=== PATIENT | male | born 1960 | race African-American/Black ===

== ENCOUNTER 2016-04-10 07:33 | Emergency (ER) | payer OTHER ==
[~2016-04-10] VITALS: Ht 177.8 cm; Wt 85.5 kg
[~2016-04-10 07:33] MED LIST: MIRALAX17 GM PO
[2016-04-10 08:33] LABS: EOSINOPHIL (%) 0.4 % (0-5); HEMATOCRIT 40.6 % (38.0-50.0); IMMATURE GRANULOCYTE (%) 0.2 % (0.0-0.7); IMMATURE GRANULOCYTE COUNT 0.1 K/uL; LYMPHOCYTE COUNT 1.1 K/uL (1.0-2.8); MCH 29.4 PG (29.0-34.0); MCHC 34.2 G/DL (30.0-36.0); MEAN PLAT.VOLUME 9.5 uM^3 (9.0-12.4); MONOCYTE (%) 12.1 % (3-12); MONOCYTE COUNT 0.6 K/uL (0-0.8); NEUTROPHIL (%) 63.7 % (45-76); NEUTROPHIL COUNT 2.9 K/uL (1.8-6.4); PLATELET COUNT 228 K/uL (156-360); RBC DIS.WIDTH-CV 13.2 % (11.8-14.6); RBC DIS.WIDTH-SD 41.1 % (39-53); RED BLOOD COUNT 4.72 M/uL (4.00-5.50); WHITE BLOOD COUNT 4.6 K/uL (4.1-10.2)
[2016-04-10 08:53] LABS: CHLORIDE 106 mEq/L (99-109); POTASSIUM 4.1 mEq/L (3.7-5.4); SODIUM 137 mEq/L (136-147)
[2016-04-10 08:55] LABS: GLUCOSE 91 mg/dL (70-99)
[2016-04-10 08:56] LABS: ANION GAP 13 MEQ/L (2-14)
[2016-04-10 08:58] LABS: GFR ESTIMATE (CALCULATED) > 59 mL/min/
[2016-04-10 08:59] LABS: UREA NITROGEN (BUN) 18 mg/dL (9-23)
[2016-04-10 11:57] LABS: ADD MIUA? YES; BILIRUBIN SMALL; BLOOD NEGATIVE; COLOR DK YELLOW ((YELLOW)); GLUCOSE (STRIP) NEGATIVE; KETONES 40; LEUKOCYTES TRACE; NITRITE NEGATIVE; PROTEIN (STRIP) 30; SPECIFIC GRAVITY 1.027 (1.000-1.030)
[2016-04-10 12:10] LABS: BACTERIA NONE SEEN; CASTS NONE SEEN /LPF; CRYSTALS NONE SEEN; EPITHELIAL CELLS RARE; MUCUS NONE SEEN; PATHOLOGICAL CAST NONE SEEN; RED BLOOD CELLS 0-5 /HPF (0-5); SMALL ROUND CELL NONE SEEN; WHITE BLOOD CELLS 0-5 /HPF (0-5); YEAST-LIKE CELL NONE SEEN
[2016-04-10] MEDS ORDERED: LEVAQUIN750 MG PO (12:16)
[2016-04-10] MEDS ORDERED: FLOMAX0.4 MG PO (12:16)
[2016-04-10] MEDS ORDERED: MIRALAX17 GM PO (12:18)
[2016-04-10] MEDS ORDERED: LISINOPRIL-HCT1 EAC3 PO ×2 (12:30→12:33)
[2016-04-10 12:33] VITALS: BP 172/106
== END 2016-04-10 12:40 | disposition home or self-care (01) ==
LOC: EME 07:33
PROVIDERS: Physician Assistant Medical
PROC: 0T9B70Z Drainage of Bladder with Drainage Device, Via Natural or Artificial Opening (ICD-10-PCS; principal; 2016-04-10)
DX: R33.9 Retention of urine, unspecified (principal); J18.9 Pneumonia, unspecified organism; K59.00 Constipation, unspecified; F11.10 Opioid abuse, uncomplicated; F17.200 Nicotine dependence, unspecified, uncomplicated
CPT/HCPCS: 74022; 80048; 81003; 85025; 99281; 99285

== ENCOUNTER 2016-04-22 09:51 | Emergency (ER) | payer OTHER ==
[~2016-04-22] VITALS: Ht 177.8 cm; Wt 88.5 kg
[~2016-04-22 09:51] MED LIST changes: +FLOMAX0.4 MG PO; +LEVAQUIN750 MG PO; +LISINOPRIL-HCT1 EAC3 PO
[2016-04-22 10:44] LABS: HEMATOCRIT 39.8 % (38.0-50.0); MCH 28.8 PG (29.0-34.0); MCHC 32.7 G/DL (30.0-36.0); MCV 88.1 FL (86-99); RBC DIS.WIDTH-CV 13.3 % (11.8-14.6); RBC DIS.WIDTH-SD 41.9 % (39-53); RED BLOOD COUNT 4.52 M/uL (4.00-5.50); WHITE BLOOD COUNT 3.5 K/uL (4.1-10.2)
[2016-04-22 10:55] LABS: PLATELET COUNT 396 K/uL (156-360)
[2016-04-22 10:57] LABS: CHLORIDE 105 mEq/L (99-109); POTASSIUM 4.2 mEq/L (3.7-5.4); SODIUM 138 mEq/L (136-147)
[2016-04-22 10:59] LABS: GLUCOSE 139 mg/dL (70-99)
[2016-04-22 11:00] LABS: ANION GAP 10 MEQ/L (2-14)
[2016-04-22 11:01] LABS: TOTAL BILIRUBIN 0.4 mg/dL (0.0-1.0)
[2016-04-22 11:02] LABS: SERUM ETHYL ALCOHOL < 10 mg/dL
[2016-04-22 11:03] LABS: ALKALINE PHOSPHATASE 56 IU/L (3-129); GFR ESTIMATE (CALCULATED) > 59 mL/min/
[2016-04-22 11:04] LABS: UREA NITROGEN (BUN) 12 mg/dL (9-23)
[2016-04-22 11:56] LABS: ADD MIUA? NO; BILIRUBIN NEGATIVE; BLOOD NEGATIVE; COLOR YELLOW ((YELLOW)); GLUCOSE (STRIP) NEGATIVE; KETONES NEGATIVE; LEUKOCYTES NEGATIVE; NITRITE NEGATIVE; PROTEIN (STRIP) TRACE; SPECIFIC GRAVITY 1.015 (1.000-1.030); UROBILINOGEN 0.2 MG/DL (0.2-1.0)
[2016-04-22 12:05] LABS: ADD MEDTOX COMMENT Y; AMPHETAMINE NEGATIVE (500 ng/mL); BARBITURATES NEGATIVE (200 ng/mL); BENZODIAZEPINES NEGATIVE (150 ng/mL); COCAINE PRESUMPTIVE POSITIVE (150 ng/mL); INTERNAL CONTROLS VALID? YES; METHADONE NEGATIVE (200 ng/mL); METHAMPHETAMINE NEGATIVE (500 ng/mL); OPIATES (MORPHINE) PRESUMPTIVE POSITIVE (100 ng/mL); OXYCODONE NEGATIVE (100 ng/mL); PHENCYCLIDINE NEGATIVE (25 ng/mL); PROPOXYPHENE NEGATIVE (300 ng/mL); THC CANNABINOIDS NEGATIVE (50 ng/mL); TRICYCLIC ANTIDEPRESSANTS NEGATIVE (300 ng/mL)
[2016-04-22 12:27] VITALS: BP 143/88
== END 2016-04-22 13:48 | disposition home or self-care (01) ==
LOC: EME → EDBD 09:51 → EME 09:51
PROVIDERS: Emergency Medicine
DX: F11.10 Opioid abuse, uncomplicated (principal); T40.2X1A Poisoning by other opioids, accidental (unintentional), initial encounter; I10 Essential (primary) hypertension; F17.200 Nicotine dependence, unspecified, uncomplicated
CPT/HCPCS: 73030; 80053; 81003; 84999; 85027; 93005; 99281; 99284; G0480; J2310; J7030

== ENCOUNTER 2017-07-17 08:13 | Inpatient (IN) | payer OTHER ==
[~2017-07-17] VITALS: Ht 177.8 cm; Wt 80.0 kg
[2017-07-17 08:53] LABS: BASOPHIL (%) 0.3 % (0-1); EOSINOPHIL (%) 0.4 % (0-5); HEMATOCRIT 43.9 % (38.0-50.0); HEMOGLOBIN 15.6 G/DL (12.5-16.6); IMMATURE GRANULOCYTE (%) 0.3 % (0.0-0.7); LYMPHOCYTE (%) 35.2 % (15-42); LYMPHOCYTE COUNT 2.4 K/uL (1.0-2.8); MCH 28.8 PG (29.0-34.0); MCHC 35.5 G/DL (30.0-36.0); MCV 81.1 FL (86-99); MONOCYTE (%) 9.6 % (3-12); MONOCYTE COUNT 0.7 K/uL (0-0.8); NEUTROPHIL (%) 54.2 % (45-76); NEUTROPHIL COUNT 3.7 K/uL (1.8-6.4); PLATELET COUNT 367 K/uL (156-360); RBC DIS.WIDTH-CV 12.4 % (11.8-14.6); RBC DIS.WIDTH-SD 36.4 % (39-53); RED BLOOD COUNT 5.41 M/uL (4.00-5.50); WHITE BLOOD COUNT 6.8 K/uL (4.1-10.2)
[2017-07-17 08:59] LABS: CHLORIDE 91 mEq/L (99-109); POTASSIUM 3.9 mEq/L (3.7-5.4); SODIUM 128 mEq/L (136-147)
[2017-07-17 09:01] LABS: GLUCOSE 112 mg/dL (70-99)
[2017-07-17 09:05] LABS: CREATININE 1.1 mg/dL (0.6-1.3); GFR ESTIMATE (CALCULATED) > 59 mL/min/ (58.99-99999)
[2017-07-17 09:06] LABS: UREA NITROGEN (BUN) 17 mg/dL (9-23)
[2017-07-17] MEDS ORDERED: ZESTRIL10 MG PO (10:11)
[2017-07-17 12:39] LABS: HEPATITIS B SURFACE ANTIGEN Nonreactive
[2017-07-17 12:40] LABS: ANTI-HEPATITIS A VIRUS (IGM) Nonreactive
[2017-07-17 12:41] LABS: ANTI-HEPATITIS B CORE (IGM) Nonreactive; HIV-1/2 AB/AG COMBO Nonreactive
[2017-07-17 12:44] LABS: HEPATITIS C ANTIBODY REACTIVE
[2017-07-17 15:50] VITALS: BP 173/107
[2017-07-17 17:06] VITALS: BP 168/105
[2017-07-17 17:54] VITALS: BP 181/108
[2017-07-17 20:00] VITALS: BP 161/95
[2017-07-18] VITALS (8 sets, daily range): BP systolic 127–177; BP diastolic 81–107
[2017-07-18 05:39] LABS: HEMATOCRIT 41.8 % (38.0-50.0); HEMOGLOBIN 14.1 G/DL (12.5-16.6); MCH 28.1 PG (29.0-34.0); MCHC 33.7 G/DL (30.0-36.0); MCV 83.3 FL (86-99); PLATELET COUNT 330 K/uL (156-360); RBC DIS.WIDTH-CV 12.7 % (11.8-14.6); RBC DIS.WIDTH-SD 38.5 % (39-53); RED BLOOD COUNT 5.02 M/uL (4.00-5.50); WHITE BLOOD COUNT 5.4 K/uL (4.1-10.2)
[2017-07-18 06:00] LABS: CHLORIDE 96 MEQ/L (99-109); CREATININE 1.3 MG/DL (0.6-1.3); GFR ESTIMATE (CALCULATED) > 59 mL/min/ (58.99-99999); GLUCOSE 102 mg/dL (70-99); POTASSIUM 4.6 MEQ/L (3.7-5.4); SODIUM 131 MEQ/L (136-147); UREA NITROGEN (BUN) 14 mg/dL (9-23)
[2017-07-18 09:28] LABS: ALBUMIN 3.4 G/DL (3.2-4.8); ALKALINE PHOSPHATASE 42 IU/L (3-129); ALT (GPT) 24 IU/L (3-49); AST (GOT) 27 IU/L (2-34); DIRECT BILIRUBIN 0.4 mg/dL (0.0-0.3); TOTAL BILIRUBIN 1.2 MG/DL (0.0-1.0); TOTAL PROTEIN 7.3 G/DL (6.4-8.3)
[2017-07-18 09:44] LABS: INTER. NORMALIZED RATIO 1.1
[2017-07-18 16:03] LABS: CHLORIDE 101 MEQ/L (99-109); CREATININE 0.9 MG/DL (0.6-1.3); GFR ESTIMATE (CALCULATED) > 59 mL/min/ (58.99-99999); GLUCOSE 102 mg/dL (70-99); POTASSIUM 4.1 MEQ/L (3.7-5.4); SODIUM 132 MEQ/L (136-147); UREA NITROGEN (BUN) 14 mg/dL (9-23)
[2017-07-19 03:52] VITALS: BP 164/85
[2017-07-19 06:17] LABS: BASOPHIL (%) 0.5 % (0-1); EOSINOPHIL (%) 1.4 % (0-5); EOSINOPHIL COUNT 0.1 K/uL (0-0.3); HEMATOCRIT 34.1 % (38.0-50.0); IMMATURE GRANULOCYTE (%) 0.2 % (0.0-0.7); LYMPHOCYTE (%) 41.7 % (15-42); LYMPHOCYTE COUNT 2.4 K/uL (1.0-2.8); MCHC 34.3 G/DL (30.0-36.0); MCV 84.4 FL (86-99); MONOCYTE (%) 10.8 % (3-12); MONOCYTE COUNT 0.6 K/uL (0-0.8); NEUTROPHIL (%) 45.4 % (45-76); NEUTROPHIL COUNT 2.6 K/uL (1.8-6.4); PLATELET COUNT 294 K/uL (156-360); RBC DIS.WIDTH-CV 12.8 % (11.8-14.6); RED BLOOD COUNT 4.04 M/uL (4.00-5.50); WHITE BLOOD COUNT 5.7 K/uL (4.1-10.2)
[2017-07-19 06:18] LABS: HEMOGLOBIN 11.7 G/DL (12.5-16.6)
[2017-07-19 07:13] LABS: ALKALINE PHOSPHATASE 34 IU/L (3-129); ALT (GPT) 29 IU/L (3-49); AST (GOT) 31 IU/L (2-34); CHLORIDE 106 MEQ/L (99-109); CREATININE 0.9 MG/DL (0.6-1.3); GFR ESTIMATE (CALCULATED) > 59 mL/min/ (58.99-99999); GLUCOSE 98 mg/dL (70-99); POTASSIUM 4.4 MEQ/L (3.7-5.4); SODIUM 136 MEQ/L (136-147)
[2017-07-19 07:15] VITALS: BP 160/94
[2017-07-19 07:20] LABS: TOTAL BILIRUBIN 0.7 MG/DL (0.0-1.0); TOTAL PROTEIN 6.1 G/DL (6.4-8.3); UREA NITROGEN (BUN) 29 mg/dL (9-23)
[2017-07-19 10:47] VITALS: BP 131/83
[2017-07-19 13:26] LABS: HEMATOCRIT 33.7 % (38.0-50.0); HEMOGLOBIN 11.4 G/DL (12.5-16.6); MCH 28.8 PG (29.0-34.0); MCHC 33.8 G/DL (30.0-36.0); MCV 85.1 FL (86-99); PLATELET COUNT 323 K/uL (156-360); RBC DIS.WIDTH-CV 12.8 % (11.8-14.6); RBC DIS.WIDTH-SD 39.4 % (39-53); RED BLOOD COUNT 3.96 M/uL (4.00-5.50); WHITE BLOOD COUNT 7.6 K/uL (4.1-10.2)
[2017-07-19 15:16] VITALS: BP 150/77
[2017-07-19 19:13] LABS: HEMATOCRIT 30.9 % (38.0-50.0); HEMOGLOBIN 10.5 G/DL (12.5-16.6); MCV 84.2 FL (86-99)
[2017-07-19 19:40] VITALS: BP 116/67
[2017-07-20] VITALS (8 sets, daily range): BP systolic 130–158; BP diastolic 71–80
[2017-07-20 00:39] LABS: HEMATOCRIT 29.7 % (38.0-50.0); HEMOGLOBIN 10.4 G/DL (12.5-16.6); MCV 83.2 FL (86-99)
[2017-07-20 05:52] LABS: INTER. NORMALIZED RATIO 1.1
[2017-07-20 05:55] LABS: BASOPHIL (%) 0.5 % (0-1); EOSINOPHIL (%) 0.5 % (0-5); HEMATOCRIT 29.1 % (38.0-50.0); HEMOGLOBIN 9.9 G/DL (12.5-16.6); IMMATURE GRANULOCYTE (%) 0.1 % (0.0-0.7); LYMPHOCYTE (%) 41.2 % (15-42); LYMPHOCYTE COUNT 3.1 K/uL (1.0-2.8); MCH 28.5 PG (29.0-34.0); MCV 83.9 FL (86-99); MONOCYTE (%) 9.4 % (3-12); MONOCYTE COUNT 0.7 K/uL (0-0.8); NEUTROPHIL (%) 48.3 % (45-76); NEUTROPHIL COUNT 3.6 K/uL (1.8-6.4); PLATELET COUNT 325 K/uL (156-360); RBC DIS.WIDTH-CV 12.9 % (11.8-14.6); RBC DIS.WIDTH-SD 38.6 % (39-53); RED BLOOD COUNT 3.47 M/uL (4.00-5.50); WHITE BLOOD COUNT 7.5 K/uL (4.1-10.2)
[2017-07-20 06:21] LABS: ALBUMIN 3.1 G/DL (3.2-4.8); CHLORIDE 108 MEQ/L (99-109); CREATININE 1.3 MG/DL (0.6-1.3); GFR ESTIMATE (CALCULATED) > 59 mL/min/ (58.99-99999); GLUCOSE 96 mg/dL (70-99); PHOSPHORUS 3.3 mg/dL (2.5-4.9); POTASSIUM 4.7 MEQ/L (3.7-5.4); SODIUM 137 MEQ/L (136-147); UREA NITROGEN (BUN) 37 mg/dL (9-23)
[2017-07-20 07:14] LABS: BENZODIAZEPINES, URINE SCREEN POSITIVE (200 ng/mL)
[2017-07-20 12:06] LABS: HEMATOCRIT 26.9 % (38.0-50.0); HEMOGLOBIN 9.3 G/DL (12.5-16.6); MCV 84.9 FL (86-99)
[2017-07-20 19:04] LABS: HEMATOCRIT 25.5 % (38.0-50.0); HEMOGLOBIN 8.8 G/DL (12.5-16.6); MCV 84.2 FL (86-99)
[2017-07-21] VITALS (9 sets, daily range): BP systolic 126–145; BP diastolic 69–84
[2017-07-21 05:16] LABS: BENZODIAZEPINES, URINE SCREEN Negative (200 ng/mL)
[2017-07-21 05:58] LABS: HEMATOCRIT 26.6 % (38.0-50.0); HEMOGLOBIN 9.4 G/DL (12.5-16.6); MCV 82.9 FL (86-99)
[2017-07-21 06:27] LABS: CHLORIDE 107 MEQ/L (99-109); CREATININE 1.1 MG/DL (0.6-1.3); GFR ESTIMATE (CALCULATED) > 59 mL/min/ (58.99-99999); GLUCOSE 90 mg/dL (70-99); POTASSIUM 4.2 MEQ/L (3.7-5.4); SODIUM 134 MEQ/L (136-147); UREA NITROGEN (BUN) 21 mg/dL (9-23)
[2017-07-21 11:56] LABS: HEMATOCRIT 26.2 % (38.0-50.0); HEMOGLOBIN 9.2 G/DL (12.5-16.6); MCV 83.7 FL (86-99)
[2017-07-21 18:11] LABS: HEMATOCRIT 26.7 % (38.0-50.0); MCV 83.2 FL (86-99)
[2017-07-22] VITALS (8 sets, daily range): BP systolic 124–150; BP diastolic 71–87
[2017-07-22 05:39] LABS: BASOPHIL (%) 0.8 % (0-1); EOSINOPHIL COUNT 0.2 K/uL (0-0.3); HEMATOCRIT 24.9 % (38.0-50.0); HEMOGLOBIN 8.6 G/DL (12.5-16.6); IMMATURE GRANULOCYTE (%) 0.2 % (0.0-0.7); LYMPHOCYTE COUNT 2.6 K/uL (1.0-2.8); MCH 28.7 PG (29.0-34.0); MCHC 34.5 G/DL (30.0-36.0); MONOCYTE (%) 6.4 % (3-12); MONOCYTE COUNT 0.3 K/uL (0-0.8); NEUTROPHIL (%) 39.6 % (45-76); NEUTROPHIL COUNT 2.1 K/uL (1.8-6.4); PLATELET COUNT 276 K/uL (156-360); RBC DIS.WIDTH-CV 12.8 % (11.8-14.6); RBC DIS.WIDTH-SD 38.7 % (39-53); WHITE BLOOD COUNT 5.3 K/uL (4.1-10.2)
[2017-07-22 06:09] LABS: CHLORIDE 109 MEQ/L (99-109); GFR ESTIMATE (CALCULATED) > 59 mL/min/ (58.99-99999); GLUCOSE 93 mg/dL (70-99); PHOSPHORUS 3.5 mg/dL (2.5-4.9); POTASSIUM 4.1 MEQ/L (3.7-5.4); SODIUM 139 MEQ/L (136-147); UREA NITROGEN (BUN) 10 mg/dL (9-23)
[2017-07-22 09:11] LABS: BENZODIAZEPINES, URINE SCREEN Negative (200 ng/mL)
[2017-07-22 18:24] LABS: HEMATOCRIT 27.8 % (38.0-50.0); HEMOGLOBIN 9.6 G/DL (12.5-16.6); MCV 84.2 FL (86-99)
[2017-07-22 23:09] LABS: HEMATOCRIT 26.1 % (38.0-50.0); HEMOGLOBIN 9.3 G/DL (12.5-16.6); MCV 83.7 FL (86-99)
[2017-07-23] VITALS (7 sets, daily range): BP systolic 131–162; BP diastolic 58–93
[2017-07-23 05:51] LABS: HEMATOCRIT 27.1 % (38.0-50.0); HEMOGLOBIN 9.2 G/DL (12.5-16.6); MCH 28.5 PG (29.0-34.0); MCHC 33.9 G/DL (30.0-36.0); MCV 83.9 FL (86-99); PLATELET COUNT 261 K/uL (156-360); RBC DIS.WIDTH-CV 12.8 % (11.8-14.6); RBC DIS.WIDTH-SD 38.9 % (39-53); RED BLOOD COUNT 3.23 M/uL (4.00-5.50); WHITE BLOOD COUNT 4.9 K/uL (4.1-10.2)
[2017-07-23 05:54] LABS: BENZODIAZEPINES, URINE SCREEN Negative (200 ng/mL)
[2017-07-23 06:19] LABS: ALBUMIN 2.9 G/DL (3.2-4.8); CHLORIDE 107 MEQ/L (99-109); CREATININE 1.1 MG/DL (0.6-1.3); GFR ESTIMATE (CALCULATED) > 59 mL/min/ (58.99-99999); GLUCOSE 135 mg/dL (70-99); PHOSPHORUS 3.1 mg/dL (2.5-4.9); POTASSIUM 3.7 MEQ/L (3.7-5.4); SODIUM 138 MEQ/L (136-147); UREA NITROGEN (BUN) 7 mg/dL (9-23)
[2017-07-24 03:35] VITALS: BP 154/73
[2017-07-24 06:03] LABS: BASOPHIL (%) 0.7 % (0-1); EOSINOPHIL (%) 3.5 % (0-5); EOSINOPHIL COUNT 0.2 K/uL (0-0.3); HEMOGLOBIN 9.5 G/DL (12.5-16.6); IMMATURE GRANULOCYTE (%) 0.2 % (0.0-0.7); LYMPHOCYTE COUNT 2.2 K/uL (1.0-2.8); MCH 28.7 PG (29.0-34.0); MCHC 33.9 G/DL (30.0-36.0); MCV 84.6 FL (86-99); MONOCYTE (%) 7.2 % (3-12); MONOCYTE COUNT 0.4 K/uL (0-0.8); NEUTROPHIL (%) 51.4 % (45-76); NEUTROPHIL COUNT 3.1 K/uL (1.8-6.4); PLATELET COUNT 279 K/uL (156-360); RBC DIS.WIDTH-CV 12.9 % (11.8-14.6); RBC DIS.WIDTH-SD 39.4 % (39-53); RED BLOOD COUNT 3.31 M/uL (4.00-5.50)
[2017-07-24 07:17] VITALS: BP 160/87
[2017-07-24] MEDS ORDERED: NICOTINE PATCH1 EAC2 TD (11:13)
[2017-07-24] MEDS ORDERED: OMEPRAZOLE20 MG PO (11:14)
[2017-07-24] MEDS ORDERED: ZESTRIL10 MG PO (11:15)
== END 2017-07-24 15:19 | disposition home or self-care (01) | DRG 327 ==
LOC: EME 08:13 → EDOF 09:56 → 4EAST 09:56 → EDOF 09:56 → 5WEST 09:56 → ENRESERV 10:03 → EDOF 15:44 → ENRESERV 16:56 → 5WEST 17:32 → ENRESERV 07-19 18:03 → 4EAST 07-19 19:30 → ENPENDDIS 07-24 → 4EAST 07-24 15:19
PROVIDERS: Emergency Medicine; Internal Medicine; Internal Medicine Gastroenterology; Student in an Organized Health Care Education/Training Program
DX: K25.4 Chronic or unspecified gastric ulcer with hemorrhage (principal); D62 Acute posthemorrhagic anemia; K26.7 Chronic duodenal ulcer without hemorrhage or perforation; K29.60 Other gastritis without bleeding; F14.10 Cocaine abuse, uncomplicated; F11.10 Opioid abuse, uncomplicated; Z76.5 Malingerer [conscious simulation]; Z59.0 Homelessness; R00.0 Tachycardia, unspecified; E87.1 Hypo-osmolality and hyponatremia; B18.2 Chronic viral hepatitis C; I10 Essential (primary) hypertension; F17.210 Nicotine dependence, cigarettes, uncomplicated
CPT/HCPCS: 71045; 80048; 80048 91; 80053; 80069; 80074; 80076; 80306 90; 82948; 83930; 85014; 85018; 85025; 85027; 85610; 86850; 86900; 86901; 86920; 87389; 87493; 87502; 87506; 88304; 88305; 88342 TC; 99281; 99285; C9113; G0378; J1650; J1885; J2250; J2405; J2765; J7030; J7050; P9016